=== PATIENT | male | born 1995 | race American Indian/Alaskan Native ===

== ENCOUNTER 2018-11-19 23:44 | Emergency (ER) | payer OTHER ==
[2018-11-20 00:32] VITALS: BP 133/74; PULSE 80; RESP 17; TEMP 98.6; O2SAT 98
--- NOTE | 2018-11-20 00:52 | ED PDOC ---
HPI: Abdomen Time Seen by Provider: 11/20/18 00:33 Chief Complaint (Nursing): Abdominal Pain Chief Complaint (Provider): chest pain, sore throat Additional Complaint(s): 23 y/o M with hx of bipolar d/o, schizophrenia who presents with c/o Left sided chest pain, nasal congestion and cough. Pt states that he has been having Left sided chest pain only when he coughs or takes a deep breath that began this afternoon. Further admits to sore throat but is able to swallow liquids. No radiation to arm/jaw. Further denies fever, chills or night sweats, diarrhea, or ear pain. Past Medical History Reviewed: Historical Data, Nursing Documentation, Vital Signs Vital Signs: Last Vital Signs Temp 98.6 F 11/20/18 00:15 Pulse 80 11/20/18 00:15 Resp 17 11/20/18 00:15 BP 133/74 11/20/18 00:15 Pulse Ox 98 11/20/18 00:15 - Medical History PMH: Bipolar Disorder, Schizophrenia - Family History Family History: States: Unknown Family Hx - Home Medications Home Medications: Ambulatory Orders Medication Instructions Recorded Acetaminophen [Tylenol 325mg tab] 650 mg PO Q6 PRN 7 Days tab 11/20/18 Ibuprofen [Motrin Tab] 600 mg PO Q6 PRN 7 Days tab 11/20/18 - Allergies Allergies/Adverse Reactions: Allergies Allergy/AdvReac Type Severity Reaction Status Date / Time No Known Allergies Allergy Verified 11/21/18 03:03 Review of Systems Constitutional: Negative for: Fever, Chills ENT: Positive for: Nose Congestion, Throat Pain. Negative for: Ear Pain, Throat Swelling Cardiovascular: Positive for: Chest Pain. Negative for: Palpitations Respiratory: Positive for: Cough. Negative for: Shortness of Breath Gastrointestinal: Negative for: Nausea, Vomiting Physical Exam - Reviewed Nursing Documentation Reviewed: Yes Vital Signs Reviewed: Yes - Physical Exam Appears: Positive for: Non-toxic Skin: Positive for: Normal Color Eye Exam: Positive for: Normal appearance ENT: Positive for: Normal ENT Inspection Neck: Positive for: Supple Cardiovascular/Chest: Positive for: Regular Rate, Rhythm Respiratory: Positive for: Normal Breath Sounds, Other (reproducible chest pain on palpation of left ribs) Gastrointestinal/Abdominal: Positive for: Normal Exam Lymphatic: Positive for: Normal Exam Neurologic/Psych: Positive for: Alert, Oriented - ECG O2 Sat by Pulse Oximetry: 98 Disposition - Clinical Impression Clinical Impression: Costochondral chest pain - Patient ED Disposition Is Patient to be Admitted: No Counseled Patient/Family Regarding: Studies Performed, Diagnosis, Rx Given - Disposition Referrals: [facility] [Outside] Disposition: Routine/Home Disposition Time: 03:55 Condition: STABLE Additional Instructions: Take Ibuprofen and Tylenol for pain. Take over the counter cough medication. F/u with primary care doctor as needed. Prescriptions: Acetaminophen [Tylenol 325mg tab] 650 mg PO Q6 PRN 7 Days tab PRN Reason: Pain, Moderate (4-7) Ibuprofen [Motrin Tab] 600 mg PO Q6 PRN 7 Days tab PRN Reason: Pain, Moderate (4-7) Instructions: Chest Pain That Is Not Caused by the Heart (DC) Forms: [facility] (Romansh) Print Language: GREENLANDIC
--- NOTE | 2018-11-20 14:52 | RAD ---
Date of service: 11/20/2018 HISTORY: shortness of breath, cough COMPARISON: No prior. TECHNIQUE: Chest PA and lateral FINDINGS: LUNGS: No active pulmonary disease. PLEURA: No significant pleural effusion identified. No pneumothorax apparent. CARDIOVASCULAR: No aortic atherosclerotic calcification present. Normal cardiac size. No pulmonary vascular congestion. OSSEOUS STRUCTURES: No significant abnormalities. VISUALIZED UPPER ABDOMEN: Normal. OTHER FINDINGS: None. IMPRESSION: No acute cardiopulmonary disease appreciated.
== END 2018-11-20 03:55 | disposition home or self-care (01) ==
LOC: H.ER 23:44
DX: R07.9 Chest pain, unspecified (principal); Z86.59 Personal history of other mental and behavioral disorders

== ENCOUNTER 2018-11-21 02:56 | Emergency (ER) | payer OTHER ==
[2018-11-21 03:03] VITALS: BP 120/84; PULSE 68; RESP 16; TEMP 97.7; O2SAT 99
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
== END 2018-11-21 04:34 | disposition home or self-care (01) ==
LOC: H.ER 02:56
DX: F41.9 Anxiety disorder, unspecified (principal); Z86.59 Personal history of other mental and behavioral disorders; Z59.0 Homelessness

== ENCOUNTER 2018-12-02 02:23 | Emergency (ER) | payer OTHER ==
[2018-12-02 02:39] VITALS: BP 117/58; PULSE 92; RESP 18; TEMP 98; O2SAT 97
--- NOTE | 2018-12-02 02:42 | ED PDOC ---
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 States he has right foot pain ongoing noted mostly in toes.) Past Medical History Reviewed: Historical Data, Nursing Documentation, Vital Signs Vital Signs: Last Vital Signs Temp 98 F 12/02/18 02:34 Pulse 92 H 12/02/18 02:34 Resp 18 12/02/18 02:34 BP 117/58 L 12/02/18 02:34 Pulse Ox 97 12/02/18 02:34 - Medical History PMH: Anxiety, Bipolar Disorder, Schizophrenia Denies: Diabetes, Hepatitis, HIV, HTN, Seizures, Sexually Transmitted Disease - Family History Family History: States: No Known Family Hx - Home Medications Home Medications: Ambulatory Orders Medication Instructions Recorded Acetaminophen [Tylenol 325mg tab] 650 mg PO Q6 PRN 7 Days tab 11/20/18 Ibuprofen [Motrin Tab] 600 mg PO Q6 PRN 7 Days tab 11/20/18 Butenafine HCl [Lotrimin Ultra] 0.5 gm TP BID #30 cream..g. 12/02/18 - Allergies Allergies/Adverse Reactions: Allergies Allergy/AdvReac Type Severity Reaction Status Date / Time No Known Allergies Allergy Verified 11/21/18 03:03 Review of Systems ROS Statement: Except As Marked, All Systems Reviewed And Found Negative Physical Exam - Reviewed Nursing Documentation Reviewed: Yes Vital Signs Reviewed: Yes - Physical Exam Appears: Positive for: Well, Non-toxic, No Acute Distress Head Exam: Positive for: ATRAUMATIC, NORMAL INSPECTION, NORMOCEPHALIC Skin: Positive for: Normal Color, Warm, DRY Eye Exam: Positive for: EOMI, Normal appearance, PERRL ENT: Positive for: Normal ENT Inspection Neck: Positive for: Normal, Painless ROM Cardiovascular/Chest: Positive for: Regular Rate, Rhythm Respiratory: Positive for: CNT, Normal Breath Sounds Gastrointestinal/Abdominal: Positive for: Normal Exam, Soft Back: Positive for: Normal Inspection Extremity: Positive for: Normal ROM, Other (moist skin webspaces of toes right foot.) Neurologic/Psych: Positive for: Alert, Oriented - ECG O2 Sat by Pulse Oximetry: 97 Disposition - Clinical Impression Clinical Impression: Tinea cruris - Patient ED Disposition Is Patient to be Admitted: No - Disposition Referrals: [facility] [Outside] Disposition: Routine/Home Disposition Time: 02:41 Condition: FAIR Prescriptions: Butenafine HCl [Lotrimin Ultra] 0.5 gm TP BID #30 cream..g. Instructions: Ringworm, Athlete's Foot, and Jock Itch
== END 2018-12-02 02:57 | disposition home or self-care (01) ==
LOC: H.ER 02:23
DX: B35.6 Tinea cruris (principal)